=== PATIENT | male | born 1960 | race African-American/Black ===

== ENCOUNTER 2016-11-12 14:22 | Emergency (ER) | payer OTHER ==
[~2016-11-12] VITALS: Wt 90.0 kg
[2016-11-12 16:45] LABS: BASOPHIL # 0.1 10^3/ul (0.0-0.1); BASOPHILS % 1.2 % (0.0-2.0); EOSINOPHILS # 0.2 10^3/ul (0.0-0.5); EOSINOPHILS % 2.2 % (0.0-7.0); HEMATOCRIT 40.2 % (42.0-52.0); HEMOGLOBIN 12.9 g/dl (14.0-18.0); LYMPHOCYTES # 2.1 10^3/ul (0.8-2.9); LYMPHOCYTES % 28.6 % (15.0-51.0); MEAN CORPUSCULAR HGB CONC 32.1 g/dl (32.0-37.0); MEAN CORPUSCULAR VOLUME 96.6 fl (82.0-101.0); MEAN PLATELET VOLUME 9.9 fl (7.4-10.4); MONOCYTE # 0.5 10^3/ul (0.3-0.9); MONOCYTES % 7.1 % (0.0-11.0); NEUTROPHIL # 4.4 10^3/ul (1.6-7.5); NEUTROPHILS % 60.8 % (39.0-77.0); PLATELET COUNT 324 10^3/UL (140-415); RED BLOOD COUNT 4.16 10^6/ul (4.70-6.10); RED CELL DISTRIBUTION WIDTH 12.5 % (11.5-14.5); WHITE BLOOD COUNT 7.3 10^3/ul (4.8-10.8)
[2016-11-12 16:57] LABS: ADD UMIC YES; UR ASCORBIC ACID NEGATIVE (NEGATIVE); UR BILIRUBIN (Dip) NEGATIVE (NEGATIVE); UR BLOOD (Dip) 3+ mg/dL (NEGATIVE); UR CLARITY SLIGHTLY CLOUDY (CLEAR); UR COLOR RED (YELLOW); UR GLUCOSE (Dip) NEGATIVE (NEGATIVE); UR KETONES (Dip) TRACE mg/dL (NEGATIVE); UR LEUKOCYTE ESTERASE (Dip) TRACE Leu/ul (NEGATIVE); UR NITRITE (Dip) NEGATIVE (NEGATIVE); UR RBC > 182 /HPF (0-5); UR SPECIFIC GRAVITY (Dip) 1.023 (1.003-1.030); UR TOTAL PROTEIN (Dip) 2+ mg/dl (NEGATIVE); UR UROBILINOGEN (Dip) 2+ mg/dL (NEGATIVE)
[2016-11-12 17:06] LABS: INR 1.05; PROTIME 13.7 Sec (12.2-14.2); PT RATIO 1.1
[2016-11-12 17:07] LABS: PARTIAL THROMBOPLASTIN TIME 26.8 Sec (25.0-35.0)
[2016-11-12 17:17] LABS: ALBUMIN 4.4 g/dl (3.3-4.9); ALBUMIN/GLOBULIN RATIO 1.12; CALCIUM 9.2 mg/dl (8.4-10.2); CREATININE 1.05 mg/dl (0.61-1.24); POTASSIUM 4.1 mmol/L (3.5-5.1); TOTAL PROTEIN 8.3 g/dl (6.1-8.1)
[2016-11-12 18:26] VITALS: BP 136/99; PULSE 76; RESP 16; TEMP 98.5
--- NOTE | 2016-11-15 14:22 | ERD ---
ER Documentation Chief Complaint Date/Time DATE: 11/15/16 TIME: 14:16 Chief Complaint BLOOD IN URINE, PT WITH GARAY CATH TO LEG BAG HPI Patient is a 56-year-old male presenting to the emergency department with complaints of blood in his suprapubic catheter bag when she first noticed today. He states this happened approximately 1 week ago and he took an antibiotic which he believes was Cipro, and the blood resolved. The patient states he has an appointment with his urologist this coming Tuesday, to have some type of procedure performed. He states he has urinary retention secondary to possible prostate issues. He denies fevers, chills, abdominal pain, or other symptoms at this time. ROS All systems reviewed and are negative except as per history of present illness. Medications Home Meds Active Scripts Ciprofloxacin Hcl* (Ciprofloxacin Hcl*) 500 Mg Tablet, 500 MG PO BID for 7 Days , TAB Prov:PHAM LUGO MD 11/14/16 Allergies Allergies: Coded Allergies: No Known Allergy (Unverified , 11/12/16) PMhx/Soc Medical and Surgical Hx: pt denies Medical Hx, pt denies Surgical Hx Hx Alcohol Use: Yes Hx Substance Use: No Hx Tobacco Use: No Smoking Status: Former smoker Physical Exam Vitals Vital Signs Date Time Temp Pulse Resp B/P Pulse Ox O2 Delivery O2 Flow Rate FiO2 11/12/16 18:26 98.5 76 16 136/99 99 Room Air 11/12/16 14:25 98.7 102 18 154/90 98 Physical Exam Const: Nontoxic, well-appearing male in no acute distress. Head: Atraumatic Eyes: Normal Conjunctiva ENT: Normal External Ears, Nose and Mouth. Exam: Suprapubic catheter in place. There is blood-tinged urine draining to urine bag. Scrotum: [Normal] Cremaster: [Reflex intact] Discharge: [None] Skin: No petechiae or rashes Back: No midline or flank tenderness Ext: No cyanosis, or edema Neur: Awake and alert Psych: Normal Mood and Affect Result Diagram: 11/12/16 1630 11/12/16 1630 Results 24 hrs Laboratory Tests Test 11/12/16 16:30 White Blood Count 7.310^3/ul Red Blood Count 4.1610^6/ul Hemoglobin 12.9g/dl Hematocrit 40.2% Mean Corpuscular Volume 96.6fl Mean Corpuscular Hemoglobin 31.0pg Mean Corpuscular Hemoglobin Concent 32.1g/dl Red Cell Distribution Width 12.5% Platelet Count 97857^3/UL Mean Platelet Volume 9.9fl Neutrophils % 60.8% Lymphocytes % 28.6% Monocytes % 7.1% Eosinophils % 2.2% Basophils % 1.2% Nucleated Red Blood Cells % 0.0/100WBC Neutrophils # 4.410^3/ul Lymphocytes # 2.110^3/ul Monocytes # 0.510^3/ul Eosinophils # 0.210^3/ul Basophils # 0.110^3/ul Nucleated Red Blood Cells # 0.010^3/ul Prothrombin Time 13.7Sec Prothrombin Time Ratio 1.1 INR International Normalized Ratio 1.05 Activated Partial Thromboplast Time 26.8Sec Urine Color RED Urine Clarity SLIGHTLY CLOUDY Urine pH 6.0 Urine Specific [place] 1.023 Urine Ketones TRACEmg/dL Urine Nitrite NEGATIVEmg/dL Urine Bilirubin NEGATIVEmg/dL Urine Urobilinogen 2+mg/dL Urine Leukocyte Esterase TRACELeu/ul Urine Microscopic RBC > 182/HPF Urine Microscopic WBC 0/HPF Urine Hemoglobin 3+mg/dL Urine Glucose NEGATIVEmg/dL Urine Total Protein 2+mg/dl Sodium Level 144mmol/L Potassium Level 4.1mmol/L Chloride Level 109mmol/L Carbon Dioxide Level 28mmol/L Anion Gap 11 Blood Urea Nitrogen 17mg/dl Creatinine 1.05mg/dl Glucose Level 95mg/dl Calcium Level 9.2mg/dl Total Bilirubin 0.0mg/dl Direct Bilirubin 0.00mg/dl Indirect Bilirubin 0.0mg/dl Aspartate Amino Transf (AST/SGOT) 21IU/L Alanine Aminotransferase (ALT/SGPT) 28IU/L Alkaline Phosphatase 120IU/L Total Protein 8.3g/dl Albumin 4.4g/dl Globulin 3.90g/dl Albumin/Globulin Ratio 1.12 Procedures/MDM Patient is a 56-year-old male presenting to the emergency department with complaints of blood-tinged urine in his suprapubic catheter bag which he first noticed today. Physical examination shows suprapubic catheter in place draining blood-tinged urine. Workup in the department: CBC showed no signs of leukocytosis or significant anemia. Chemistry panel was within normal limits. Urine did show trace leukocytes, but not significant. The patient's bladder was irrigated with approximately 300 cc of normal saline in the department by nursing staff. Amount of hematuria decreased after irrigation. The patient denied any pain. He was stable and comfortable for discharge after workup and treatment in the department. He was given copies of his results. He was advised to follow-up with his urologist as soon as possible. He may return to the emergency department immediately for any new or worsening symptoms. Low suspicion for life-threatening illness at time of discharge. Close follow-up with the primary care physician and urologist was advised. Urine culture was sent. I discussed this case with attending physician, Dr. Rubin Bacon, who recommended close follow-up with urologist and because the patient is already on antibiotics to not prescribe more at this time. Departure Diagnosis: Primary Impression: Hematuria Hematuria type: unspecified type Qualified Code: R31.9 - Hematuria, unspecified type Condition: Fair Patient Instructions: Hematuria Referrals: [facility] YOU HAVE RECEIVED A MEDICAL SCREENING EXAM AND THE RESULTS INDICATE THAT YOU DO NOT HAVE A CONDITION THAT REQUIRES URGENT TREATMENT IN THE EMERGENCY DEPARTMENT. FURTHER EVALUATION AND TREATMENT OF YOUR CONDITION CAN WAIT UNTIL YOU ARE SEEN IN YOUR DOCTORS OFFICE WITHIN THE NEXT 1-2 DAYS. IT IS YOUR RESPONSIBILITY TO MAKE AN APPOINTMENT FOR FOLOW-UP CARE. IF YOU HAVE A PRIMARY DOCTOR --you should call your primary doctor and schedule an appointment IF YOU DO NOT HAVE A PRIMARY DOCTOR YOU CAN CALL OUR PHYSICIAN REFERRAL HOTLINE AT IF YOU CAN NOT AFFORD TO SEE A PHYSICIAN YOU CAN CHOSE FROM THE FOLLOWING [facility] [id number] [facility]. [facility] [address] [facility] [facility] [address] [facility]. [facility] [address] [facility]. [facility] [address] [facility]. [facility]. [address] Additional Instructions: Continue all medication as prescribed by your urologist and primary care physician. Return immediately for new or worsening symptoms. Keep your appointment on this upcoming Tuesday with your urologist. SHELDON GUZMAN PA-C Nov 15, 2016 14:22
== END 2016-11-12 18:29 | disposition home or self-care (01) ==
LOC: FTE 14:22
DX: R31.9 Hematuria, unspecified (principal); Z87.891 Personal history of nicotine dependence
CPT/HCPCS: 36415; 80053; 81001; 85025; 85610; 85730; 87086; 99283

== ENCOUNTER 2016-11-14 23:24 | Emergency (ER) | payer OTHER ==
[~2016-11-14] VITALS: Ht 182.9 cm; Wt 88.0 kg
[2016-11-14 23:26] VITALS: Ht 182.9 cm; Wt 88.0 kg
[2016-11-14] MEDS ORDERED: CIPR500T4 PO (23:45)
--- NOTE | 2016-11-14 23:53 | ERD ---
ER Documentation Chief Complaint Date/Time DATE: 11/14/16 TIME: 23:51 Chief Complaint c/o hematuria x 1 day. (+) suprapubic catheter. HPI Patient is a 56-year-old male with suprapubic catheter from frequent UTI who presents with blood in his urine bag. He said that it started earlier today. He said that he has had this in the past as well and has had infection in the past. He is taking some antibiotic which he thinks might be Cipro over the past 3 days. He did have a workup done here in the emergency department at [facility] on November 12 with laboratory studies, and urinalysis. Urinalysis came back positive for infection but the culture did not grow anything. He does have a primary doctor and a urologist which he has not called as of yet. Upon review of old medical records this is the patient's second visit to the ER. ROS All systems reviewed and are negative except as per history of present illness. Medications Home Meds Active Scripts Ciprofloxacin Hcl* (Ciprofloxacin Hcl*) 500 Mg Tablet, 500 MG PO BID for 7 Days , TAB Prov:PHAM LUGO MD 11/14/16 Allergies Allergies: Coded Allergies: No Known Allergy (Unverified , 11/12/16) PMhx/Soc Hx Alcohol Use: Yes Hx Substance Use: No Hx Tobacco Use: No FmHx Family History: diabetes Physical Exam Vitals Vital Signs Date Time Temp Pulse Resp B/P Pulse Ox O2 Delivery O2 Flow Rate FiO2 11/14/16 23:26 97.5 81 20 142/78 100 Physical Exam Const: No acute distress Head: Atraumatic Eyes: Normal Conjunctiva ENT: Normal External Ears, Nose and Mouth. Neck: Full range of motion..~ No meningismus. Resp: Clear to auscultation bilaterally Cardio: Regular rate and rhythm, no murmurs Abd: Soft, non tender, non distended. Normal bowel sounds the patient is a suprapubic catheter in place that has reddish tinged urine but not job blood Skin: No petechiae or rashes Back: No midline or flank tenderness Ext: No cyanosis, or edema Neur: Awake and alert Psych: Normal Mood and Affect Results 24 hrs Current Medications Medications (Trade) Dose Ordered Sig/Alan Route PRN Reason Start Time Stop Time Status Last Admin Dose Admin Ciprofloxacin (Cipro) 500 mg ONCE ONCE PO 11/15/16 00:00 11/15/16 00:01 Procedures/MDM Urinalysis and urine culture pending. Patient is a 56-year-old male who presents with blood-tinged urine from a suprapubic catheter. I will give him a prescription for Cipro in the case he is not currently taking Cipro. I believe outpatient management is appropriate but he needs close follow-up with his urologist within the next 24-48 hours. He can return for any worsening symptoms. Is otherwise well-appearing. I believe outpatient management is appropriate at this time but he could return for any worsening symptoms. Departure Diagnosis: Primary Impression: Cystitis Additional Impression: Hematuria Hematuria type: unspecified type Qualified Code: R31.9 - Hematuria, unspecified type Condition: Fair Patient Instructions: Cystitis, Hematuria Referrals: Your Urologist Additional Instructions: SPECIALIST: YOU HAVE A MEDICAL CONDITION WHICH REQUIRES YOU TO SEE A SPECIALIST WITHIN THE NEXT 1-2 DAYS. PLEASE FOLLOW UP WITH YOUR PRIMARY PHYSICIAN FOR REFFERAL.IF YOU DO NOT HAVE A PRIMARY CARE PHYSICIAN AND/OR YOU CAN NOT AFFORD TO SEE A PHYSICIAN THE FOLLOWING RESOURCES HAVE BEEN SUPPLIED TO YOU. IT IS YOUR RESPONSIBILITY TO BE SEEN BY THE SPECIALIST PHAM LUGO MD Nov 14, 2016 23:53
[2016-11-15] MEDS ORDERED: CIPROFLOXACIN 500 MG TAB PO ONE
[2016-11-15 00:25] LABS: ADD UMIC YES; UR ASCORBIC ACID NEGATIVE (NEGATIVE); UR BILIRUBIN (Dip) NEGATIVE (NEGATIVE); UR BLOOD (Dip) 3+ mg/dL (NEGATIVE); UR BUDDING YEAST FEW /HPF (NONE SEEN); UR CLARITY CLOUDY (CLEAR); UR COLOR RED (YELLOW); UR GLUCOSE (Dip) NEGATIVE (NEGATIVE); UR KETONES (Dip) NEGATIVE (NEGATIVE); UR LEUKOCYTE ESTERASE (Dip) 3+ Leu/ul (NEGATIVE); UR NITRITE (Dip) NEGATIVE (NEGATIVE); UR RBC > 182 /HPF (0-5); UR SPECIFIC GRAVITY (Dip) 1.016 (1.003-1.030); UR TOTAL PROTEIN (Dip) 2+ mg/dl (NEGATIVE); UR UROBILINOGEN (Dip) 1+ mg/dL (NEGATIVE)
[2016-11-15 00:39] VITALS: BP 144/68; PULSE 61; RESP 16; TEMP 98
== END 2016-11-15 00:39 | disposition home or self-care (01) ==
LOC: E/R 23:24
DX: N30.91 Cystitis, unspecified with hematuria (principal)
CPT/HCPCS: 81001; 87086; 99283